=== PATIENT | female | born 1950 | race American Indian/Alaskan Native ===

== ENCOUNTER 2016-03-31 09:10 | Outpatient (CLI) | payer MEDICARE ==
[2016-03-31 09:48] LABS: Hematocrit 35.6 % (30.3-42.9); Hemoglobin 11.5 gm/dl (10.1-14.3); Mean Corpuscular HGB Conc 32 % (30-34); Mean Corpuscular Hemoglobin 29 pg (28-32); Mean Corpuscular Volume 88 fl (79-97); Platelet Count 252 K/mm3 (140-440); Red Blood Count 4.03 M/mm3 (3.65-5.03); Red Cell Distribution Width 13.6 % (13.2-15.2); White Blood Count 8.5 K/mm3 (4.5-11.0)
[2016-03-31 10:04] LABS: Albumin 4.6 g/dL (3.9-5); Albumin/Globulin Ratio 1.3 %; BUN/Creatinine Ratio 15.29; Bilirubin,Total 0.4 mg/dL (0.1-1.2); Calcium 9.2 mg/dL (8.4-10.2); Chloride 106.8 mmol/L (98-107); Potassium 4.8 mmol/L (3.6-5.0); Total Protein 8.2 g/dL (6.3-8.2)
--- NOTE | 2016-03-31 16:00 | Fluoroscopy Report ---
SMALL BOWEL SERIES: The patient has a PEG tube. There is a total colectomy. The unopacified bowel demonstrates marked gaseous dilatation of numerous loops. The patient swallowed liquid barium. Barium is followed through the diffusely dilated small bowel loops to what appears to be an anastomosis with the rectum. The transit time required 2 hours and 45 minutes. There is no transitional zone nor is there any identified intraluminal mass. Compared to her prior examination on November 05, 2015, the transit time is markedly improved. IMPRESSION: Colectomy. Slow bowel transit time with no obstruction identified.
== END 2016-03-31 09:11 | disposition home or self-care (01) ==
LOC: FLUORO 09:10
PROVIDERS: ATTEND Surgery
DX: Z93.1 Gastrostomy status (principal); Z90.49 Acquired absence of other specified parts of digestive tract
CPT/HCPCS: 36415; 74250; 80053; 85027

== ENCOUNTER 2016-04-12 10:14 | Outpatient (CLI) | payer MEDICARE ==
--- NOTE | 2016-04-12 12:16 | XRay Report ---
LUMBAR SPINE RADIOGRAPHS: INDICATION: Postlaminectomy syndrome. COMPARISON: None similar. FINDINGS: AP, oblique and lateral lumbar spine radiographs demonstrate L3 and L4 corpectomy with interbody strut placement between L2 and L5 vertebral bodies. Posterior pedicle rods and screws noted bilaterally at L2 and L5 with right-sided screws at L3 and L4 levels as well. L1 and L2 degenerative spurring and L1-L2 disc narrowing noted. Posterior lumbar decompression may also be present. Few adjacent renny. Atherosclerotic aortoiliac calcifications. Probable cholecystectomy clips and G-tube as well. Intact SI joints. Moderate air filled bowel distention within the right hemiabdomen again noted, asymmetric to the left. Right hemidiaphragm slightly elevated. Clear visualized lung bases. CONCLUSION: Extensive lumbar postsurgical changes, as described with upper lumbar degenerative changes and few other incidental findings, as above. Please correlate. Thank you for the opportunity to participate in this patient's care.
--- NOTE | 2016-04-13 08:11 | XRay Report ---
BILATERAL SHOULDERS, 3 VIEWS: HISTORY: Unspecified disorder of synovium/tendon right shoulder, shoulder pain. FINDINGS: Bone mineralization is within normal limits. There is no evidence for fracture, dislocation, ligamentous injury or bone lesion. Perhaps minimal osteoarthritic changes are identified. The soft tissues are unremarkable. IMPRESSION: Unremarkable bilateral shoulders. Minimal osteoarthritic changes which are appropriate for this person's age.
--- NOTE | 2016-04-13 08:17 | XRay Report ---
BILATERAL KNEES, 4 VIEWS: HISTORY: Knee pain. FINDINGS: Normal bone mineralization. No evidence for acute injury, bone lesion, joint effusion or significant degenerative changes. [place] views are within normal limits. The soft tissues are unremarkable. IMPRESSION: Unremarkable bilateral knees.
== END 2016-04-12 10:15 | disposition home or self-care (01) ==
LOC: XRAY 10:14
PROVIDERS: ATTEND Pain Medicine Interventional Pain Medicine
DX: M96.1 Postlaminectomy syndrome, not elsewhere classified (principal); M67.911 Unspecified disorder of synovium and tendon, right shoulder; M47.896 Other spondylosis, lumbar region; I70.0 Atherosclerosis of aorta; Q79.1 Other congenital malformations of diaphragm; M25.561 Pain in right knee; Z90.49 Acquired absence of other specified parts of digestive tract
CPT/HCPCS: 72110